=== PATIENT | female | born 1990 | race Caucasian/White ===

== ENCOUNTER 2024-04-08 14:29 | Outpatient (REF) | payer MEDICAID, SELFPAY ==
--- NOTE | 2024-04-08 14:10 | SKI_PTH ---
PATIENT: Es Garcia LOC: [facility] U#:[id number] AGE/SX: 33/F ROOM: RE04/08/[address]: GENEVA Mitchell : 1990 BED: DIS: 04/08/2024 SPEC #: [id number] RECD: 04/08/24 16:32 STATUS: NAOIME REElsa #: [id number] ANNE: 04/08/24 14:[address]: Kyle Hawkins DEPT: Surgical Specimen RECD BY: Nathalia Mooney ENTERED: 04/08/24 16:33 SP TYPE: VICTOR MANUEL ALEXANDRE DR: Gaetano Mchugh Tissues: 1 - SKIN BIOPSY(SHAVE/PUNCH) Procedures: SKIN LEVEL 4 Comments: [id number]
--- OUTSIDE RECORDS SUMMARY | 2024-04-08 14:32 | XMS_ITS | Continuity of Care Document ---
Author Name Unknown Organization [facility] Address [address] [place] [address] Care Team Providers Care Transportation Dispatch Manager Name Role Phone Gaetano Mchugh Primary Care Physician [phone] [facility] [address] [place] [address] Discharge Disposition: Home or Self Care Attending Physician: Gaetano Mchugh MD Admitting Physician: Gaetano Mchugh MD Referring Physician: Gaetano Mchugh MD Allergies, Adverse Reactions, Alerts No Known Medication Allergies Substance Reaction Severity Status Seasonal Unknown Active Assessment and Plan Future Appointments Immunizations Given and Recorded Vaccine Date Status Refusal Reason influenza virus vaccine, inactivated 07/14/22 Theron rded influenza virus vaccine, inactivated 08/11/14 Theron rded SARS-CoV-2 mRNA (tozinameran 12y+) bival 06/30/22 Recorded SARS-CoV-2 (COVID-19) mRNA-1273 vaccine 09/06/21 R ecorded SARS-CoV-2 (COVID-19) mRNA-1273 vaccine 03/01/21 R ecorded SARS-CoV-2 (COVID-19) mRNA-1273 vaccine 01/26/21 R ecorded tetanus-diphth toxoids (Td) adult/adol 11/18/18 Re corded tetanus-diphth toxoids (Td) adult/adol 08/29/02 Re corded influenza virus vaccine, live 06/29/17 Recorded influenza virus vaccine, live 08/09/15 Recorded tetanus/diphth/pertuss (Tdap) adult/adol 11/01/08 Recorded tetanus/diphth/pertuss (Tdap) adult/adol 10/12/08 Recorded tetanus/diphth/pertuss (Tdap) adult/adol 90 Recorded hepatitis A pediatric vaccine 06/18/07 Recorded hepatitis A pediatric vaccine 11/25/06 Recorded varicella virus vaccine 90 Recorded measles/mumps/rubella virus vaccine 90 Recor ded hepatitis B pediatric vaccine 90 Recorded Medications ARIPiprazole 2 mg oral tablet 2 mg = 1 tab, Oral, Daily, # 30 tab, 0 Refill(s) Start Date: 01/12/23 Status: Ordered cetirizine 10 mg oral tablet 10 mg = 1 tab, Oral, Daily, 0 Refill(s) Start Date: 12/25/22 Status: Ordered Dasetta oral tablet 1 tab, Oral, Daily, 0 Refill(s) Start Date: 12/25/22 Status: Ordered ibuprofen 200 mg =, Oral, every 4 hr, PRN as needed for pain, Take 2 tabs, 0 Refill(s) Start Date: 12/25/22 Status: Ordered LORazepam 0.5 mg oral tablet 0.5 mg = 1 tab, Oral, every 8 hr, PRN as needed for anxiety, 0 Refill(s) Start Date: 01/12/23 Status: Ordered Paxil 40 mg oral tablet 40 mg = 1 tab, Oral, Daily, 0 Refill(s) Start Date: 12/25/22 Status: Ordered triamcinolone 0.1% topical cream 1 amy, Topical, BID, PRN not specified, Apply to affected areas., # 80 g, 0 Refill(s) Start Date: 12/25/22 Status: Ordered Valtrex 500 mg =, Oral, PRN not specified, Take as needed, 0 Refill(s) Start Date: 12/25/22 Status: Ordered Problem List Condition Confirmation Course Effective Dates Status H ealth Status Informant Anxiety Confirmed Active Depression 1 Confirmed Active Eczema Confirmed Active HSV-2 (herpes simplex virus 2) infection Confirmed Active Elevated random blood glucose level Confirmed Active Hirsutism Confirmed Active Moderate mixed hyperlipidemia not requiring statin therapy Confirmed Active Obesity Confirmed Active OCD (obsessive compulsive disorder) Confirmed Active Encounter for surveillance of contraceptive pills Confirmed Active PCOS (polycystic ovarian syndrome) Confirmed Active Tachycardia 2 Confirmed Active 1Has been following with psychiatry and therapist. 2Improved. Transthoracic echo in 2020 Procedures Procedure Date Related Diagnosis Body Site Status Transthoracic echocardiography 10/11/20 Completed PAP smear preparation 04/02/20 Com pleted Shave biopsy 1 04/10/14 Completed 1Left thigh Results Laboratory List Name Date CBC w/o Diff (Hemogram) 01/12/23 Comprehensive Metabolic Panel (CMP) Hemoglobin A1c 01/12/23 Lipid Panel 01/12/23 TSH w/ Rflx to Free T4 01/12/23 Most recent to oldest [Reference Range]: 1 WBC [5.0-10.0 x10^3/mcL] 8.3 x10^3/mcL (01/12/23 1:30 PM) RBC [4.1-5.3 x10^6/mcL] 4.9 x10^6/mcL (01/12/23 1:30 PM) BUN [7-18 mg/dL] 16 mg/dL (01/12/23 1:30 PM) Cholesterol Total [50-200 mg/dL] 194 mg/ dL (01/12/23 1:30 PM) LDL [0-130 mg/dL] 106 mg/dL (01/12/23 1:30 PM) Glucose Level [74-106 mg/dL] 101 mg/dL (01/12/23 1:30 PM) Potassium Level [3.5-5.1 mmol/L] 4.0 mmo l/L (01/12/23 1:30 PM) MCV [80.0-96.0] 90.2 (01/12/23 1:30 PM) HDL [40-60 mg/dL] 54 mg/dL (01/12/23 1:30 PM) AST [15-37 unit/L] 18 unit/L (01/12/23 1:30 PM) ALT [14-59 unit/L] 27 unit/L (01/12/23 1:30 PM) MCHC [31.0-35.0 g/dL] 31.6 g/dL (01/12/23 1:30 PM) Sodium Level [136-145 mmol/L] 136 mmol/L (01/12/23 1:30 PM) Hct [37.0-47.0 %] 44.3 % (01/12/23 1:30 PM) Triglycerides [0-150 mg/dL] 170 mg/dL *HI* (01/12/23 1:30 PM) Calcium Level [8.5-10.1 mg/dL] 9.0 mg/dL (01/12/23 1:30 PM) Albumin Level [3.4-5.0 g/dL] 3.3 g/dL *LOW* (01/12/23 1:30 PM) Protein Total [6.4-8.2 g/dL] 7.3 g/dL (01/12/23 1:30 PM) MCH [26.0-32.0 pg] 28.5 pg (01/12/23 1:30 PM) Bilirubin Total [0.2-1.0 mg/dL] 0.6 mg/d L (01/12/23 1:30 PM) Hgb [12.0-16.0 g/dL] 14.0 g/dL (01/12/23 1:30 PM) Alk Phos [46-146 unit/L] 55 unit/L (01/12/23 1:30 PM) Platelets [130-450 x10^3/mcL] 379 x10^3/ mcL (01/12/23 1:30 PM) CO2 [21-32 mmol/L] 26 mmol/L (01/12/23 1:30 PM) TSH [0.358-3.740 mcIntlUnit/mL] 1.115 mc IntlUnit/mL (01/12/23 1:30 PM) eGFR Non-AA [>=60] 92 (01/12/23 1:30 PM) eGFR AA [>=60] 92 (01/12/23 1:30 PM) Hemoglobin A1c [4.0-6.0 %] 5.5 % (01/12/23 1:30 PM) Chloride Level [98-107 mmol/L] 101 mmol/ L (01/12/23 1:30 PM) RDW-CV [11.7-17.0 %] 12.8 % (01/12/23 1:30 PM) Creatinine Level [0.55-1.02 mg/dL] 0.86 mg/dL (01/12/23 1:30 PM) Social History Social History Type Response Tobacco Former tobacco user Tobacco Use:. 1 Sex Female 1Quit 2013 Patient Care team information Care Team Personnel Name: Gaetano Mchugh MD Position: Physician Member Role: Primary Care Physician Address: Address: [address]
--- OUTSIDE RECORDS SUMMARY | 2024-04-08 14:32 | XMS_ITS | Continuity of Care Document ---
Author Name Unknown Organization [facility] Address [address] [place] [address] Care Team Providers Care Casualty Claim Adjuster Name Role Phone Gaetano Mchugh Primary Care Physician Encounter [facility] Date(s): 02/05/24 - 02/05/24 [facility] [address] [place] [address] Discharge Disposition: Home or Self Care Attending Physician: Gaetano Mchugh MD Admitting Physician: Gaetano Mchugh MD Referring Physician: Gaetano Mchugh MD Allergies, Adverse Reactions, Alerts No Known Medication Allergies Substance Reaction Severity Status Seasonal Unknown Active Assessment and Plan Future Appointments Diagnostic Tests Pending * Hemoglobin/Thalassemia Electrophoresis, [facility] 02/05/24 Immunizations Given and Recorded Vaccine Date Status Refusal Reason SARS-COV-2 (COVID-19) vaccine, unspecifi 07/09/23 Recorded influenza, unspecified formulation 07/09/23 Record ed influenza, unspecified formulation 06/27/21 Record ed influenza virus vaccine, inactivated 07/14/22 Theron rded influenza virus vaccine, inactivated 1 06/29/17 Re corded influenza virus vaccine, inactivated 2 08/14/16 Re corded influenza virus vaccine, inactivated 3 08/09/15 Re corded influenza virus vaccine, inactivated 08/11/14 Theron rded SARS-CoV-2 mRNA (toamandanameran 12y+) bival 06/30/22 Recorded SARS-CoV-2 (COVID-19) mRNA-1273 vaccine 09/06/21 R ecorded SARS-CoV-2 (COVID-19) mRNA-1273 vaccine 03/01/21 R ecorded SARS-CoV-2 (COVID-19) mRNA-1273 vaccine 01/26/21 R ecorded tetanus-diphth toxoids (Td) adult/adol 11/18/18 Re corded tetanus-diphth toxoids (Td) adult/adol 08/29/02 Re corded influenza virus vaccine, live 06/29/17 Recorded influenza virus vaccine, live 08/09/15 Recorded human papillomavirus vaccine 10/02/11 Recorded human papillomavirus vaccine 05/16/11 Recorded human papillomavirus vaccine 02/24/11 Recorded varicella virus vaccine 4 11/01/08 Recorded varicella virus vaccine 5 09/18/95 Recorded varicella virus vaccine 90 Recorded meningococcal conjugate vaccine 6 11/01/08 Recorde d tetanus/diphth/pertuss (Tdap) adult/adol 11/01/08 Recorded tetanus/diphth/pertuss (Tdap) adult/adol 10/12/08 Recorded tetanus/diphth/pertuss (Tdap) adult/adol 7 06/18/07 Recorded tetanus/diphth/pertuss (Tdap) adult/adol 90 Recorded hepatitis A pediatric vaccine 06/18/07 Recorded hepatitis A pediatric vaccine 11/25/06 Recorded hepatitis B pediatric vaccine 08/31/98 Recorded hepatitis B pediatric vaccine 10/08/97 Recorded hepatitis B pediatric vaccine 09/06/97 Recorded hepatitis B pediatric vaccine 90 Recorded measles/mumps/rubella virus vaccine 8 09/09/95 Rec orded measles/mumps/rubella virus vaccine 9 12/20/91 Rec orded measles/mumps/rubella virus vaccine 90 Recor ded diphtheria/tetanus/pertussis,acel/polio 10 09/09/95 Recorded diphtheria/pertussis, acellular/tetanus 11 08/29/92 Recorded diphtheria/pertussis, acellular/tetanus 12 02/29/92 Recorded haemophilus b conjugate (PRP-T) vaccine 13 12/20/91 Recorded haemophilus b conjugate (PRP-T) vaccine 14 02/28/91 Recorded poliovirus vaccine, inactivated 15 03/03/91 Record ed diphth/haemoph/pertussis/tetanus/polio 16 90 Recorded diphth/haemoph/pertussis/tetanus/polio 17 90 Recorded 1Result Comment: Unit: Unknown 2Result Comment: Unit: Unknown 3Result Comment: Unit: Unknown 4Result Comment: Unit: Unknown 5Result Comment: Unit: Unknown 6Result Comment: Unit: Unknown 7Result Comment: Unit: Unknown 8Result Comment: Unit: Unknown 9Result Comment: Unit: Unknown 10Result Comment: Unit: Unknown 11Result Comment: Unit: Unknown 12Result Comment: Unit: Unknown 13Result Comment: Unit: Unknown 14Result Comment: Unit: Unknown 15Result Comment: Unit: Unknown 16Result Comment: Unit: Unknown 17Result Comment: Unit: Unknown Medications cetirizine 10 mg oral tablet 10 mg = 1 tab, Oral, Daily, 0 Refill(s) Start Date: 12/25/22 Status: Ordered Dasetta oral tablet 35 mcg 1 tab, Oral, Daily, # 84 tab, 4 Refill(s), Pharmacy: [id number] Start Date: 02/23/23 Status: Ordered ibuprofen 200 mg =, Oral, [...] Active OCD (obsessive compulsive disorder) Confirmed Active Obstructive sleep apnea, adult Confirmed Active Encounter for surveillance of contraceptive pills Confirmed Active PCOS (polycystic ovarian syndrome) Confirmed Active Snoring Confirmed Active Tachycardia 2 Confirmed Active 1Has been following with psychiatry and therapist. 2Improved. Transthoracic echo in 2020 Procedures Procedure Date Related Diagnosis Body Site Status Cytology Cvx/Vag Doc Thin Prep 02/23/23 Completed HPV Ab Genital Ql IA 02/23/23 Comp leted Due 02/2028 1, 2 02/22/23 Completed Cardiac monitoring 3 06/24/21 Comp leted Transthoracic echocardiography 06/03/21 Completed PAP smear preparation 04/02/20 Com pleted Shave biopsy 4 04/10/14 Completed 1Pap Due - 01/2019 05/04/12 - WNL 01/25/16 - WNL - Neg/Neg Next Pap Due 02/2028 3holtor monitor 4Left thigh Results Laboratory List Name Date Basic Metabolic Panel (BMP) 02/05/24 CBC w/o Diff 02/05/24 Hemoglobin A1c 02/05/24 Lipid Panel 02/05/24 TSH w/ Rflx to Free T4 02/05/24 Vitamin B12 Level 02/05/24 Most recent to oldest [Reference Range]: 1 WBC [5.0-10.0 x10^3/mcL] 7.4 x10^3/mcL (02/05/24 10:07 AM) RBC [4.1-5.3 x10^6/mcL] 4.6 x10^6/mcL (02/05/24 10:07 AM) BUN [7-18 mg/dL] 14 mg/dL (02/05/24 10:07 AM) Cholesterol Total [50-200 mg/dL] 180 mg/ dL (02/05/24 10:07 AM) LDL [0-130 mg/dL] 98 mg/dL (02/05/24 10:07 AM) Glucose Level [74-106 mg/dL] 114 mg/dL *HI* (02/05/24 10:07 AM) Potassium Level [3.5-5.1 mmol/L] 4.0 mmo l/L (02/05/24 10:07 AM) MCV [80.0-96.0 fL] 87.3 fL (02/05/24 10:07 AM) HDL [40-60 mg/dL] 52 mg/dL (02/05/24 10:07 AM) MCHC [31.0-35.0 g/dL] 32.8 g/dL (02/05/24 10:07 AM) Sodium Level [136-145 mmol/L] 138 mmol/L (02/05/24 10:07 AM) Hct [37.0-47.0 %] 40.6 % (02/05/24 10:07 AM) Triglycerides [0-150 mg/dL] 151 mg/dL *HI* (02/05/24 10:07 AM) Calcium Level [8.5-10.1 mg/dL] 8.6 mg/dL (02/05/24 10:07 AM) MCH [26.0-32.0 pg] 28.6 pg (02/05/24 10:07 AM) Hgb [12.0-16.0 g/dL] 13.3 g/dL (02/05/24 10:07 AM) B12 Level [193-986 pg/mL] 250 pg/mL (02/05/24 10:07 AM) Platelets [130-450 x10^3/mcL] 334 x10^3/ mcL (02/05/24 10:07 AM) CO2 [21-32 mmol/L] 24 mmol/L (02/05/24 10:07 AM) TSH [0.358-3.740 mcIntlUnit/mL] 2.229 mc IntlUnit/mL (02/05/24 10:07 AM) eGFR Non-AA [>=60] 88 (02/05/24 10:07 AM) eGFR AA [>=60] 88 (02/05/24 10:07 AM) Hemoglobin A1c [4.0-5.6 %] 5.6 % 1, 2 (02/05/24 10:07 AM) Chloride Level [98-107 mmol/L] 103 mmol/ L (02/05/24 10:07 AM) RDW-CV [11.5-14.5 %] 12.9 % (02/05/24 10:07 AM) Creatinine Level [0.55-1.02 mg/dL] 0.89 mg/dL (02/05/24 10:07 AM) 1Result Comment: Potential abnormal hemoglobin observed during A1c analysis. Hgb electrophoresis study added by reflex. 2Interpretive Data: New test method effective 11-10-23. Establishment of new HA1c baseline is recommended. The following A1c interpretive data reflect the 2017 [place] [employer] (ADA) guidelinesand will be reported with each A1c result: Normal: <5.7% Prediabetes: 5.7 - 6.4% Diagnostic for diabetes (if confirmed): ???6.5% Social History Social History Type Response Tobacco Former tobacco user Tobacco Use:. 1 Sex Female 1Quit 2013 Patient Care team information Care Team Personnel Name: Gaeatno Mchugh MD Position: Physician Member Role: Primary Care Physician Address: Address: [address] Care Team Related Persons Name: MAIRA A GHOSH I Address: Alternate [address] [facility] Address: Home [address] [place] [phone] Address: Mailing [address] [place] [address] [phone] Name: MARIA A GHOSH I Address: Alternate [address] [facility] Address: Home [address] [place] [phone] Address: Mailing [address] [place] [address] [phone] Name: ALESSIO GHOSH Address: Alternate [address] [facility] [phone] Address: Home [address] [place] [phone] Address: Mailing [address] [place] [address] [phone]
--- OUTSIDE RECORDS SUMMARY | 2024-04-08 14:32 | XMS_ITS | Continuity of Care Document ---
Author Name Unknown Organization [facility] or Sleep Disorders Address [address] [place] [address] Care Team Providers Care Gi Tech Name Role Phone Gaetano Mchugh Primary Care Physician [phone] Encounter [facility] Date(s): 11/02/23 - 11/02/[address] [facility] [facility] [place] [facility] [address] [place] [address] Encounter Diagnosis Obstructive sleep apnea, adult(Discharge Diagnosis) - 10/28/23 Discharge Disposition: Home or Self Care Attending Physician: Bernie Mata NP Allergies, Adverse Reactions, Alerts No Known Medication Allergies Substance Reaction Severity Status Seasonal Unknown Active Assessment and Plan Extracted from: Title:Clinic - Office Visit Note Author:Jeanne Mata NP Date:11/02/23 1.??Obstructive sleep apnea, adult??G47.33 KARLEE diagnosed on PSG in 03/2023 with AHI of 10.5/hr. She did not have REM sleep which may have led to an underestimation of the severity. She has started using an oral appliance. She has not been using this consistently. She relates it to mental health issues and not getting into a good routine. She generally tolerates the appliance well. She has an [employer] Advance Elite and based on Dr. Cobb's last note it should be set at 40 turns. She has the [employer] amy and she will start using that with the appliance and make adjustments as needed. She needs to schedule a follow-up with Dr Cobb that she missed. I discussed doing an oral appliance adjustment study but she would prefer to hold on this for now. She felt she did not sleep well while here and would like to use her appliance more consistently before considering the study.??If she and Dr. Cobb want to pursue a study she is asked to call and I can place the order. For now she is encouraged to use her appliance QHS and to get into a routine sleep schedule. ?? I provided greater than 20 minutes in the care of this patient, more than half the time was spent in [id number] counseling. ?? Future Appointments Immunizations Given and Recorded Vaccine [...] vaccine, inactivated 08/11/14 Theron rded SARS-CoV-2 mRNA (luis enriquen 12y+) bival 06/30/22 Recorded SARS-CoV-2 (COVID-19) mRNA-1273 [...] Daily, # 84 tab, 4 Refill(s), Pharmacy: [id number] Start Date: 02/23/23 Status: Ordered dulaglutide 0.75 mg/0.5 mL subcutaneous solution 0.75 mg = 0.5 mL, Subcutaneous, every week, rotate injection sites, # 2 mL, 0 Refill(s), Pharmacy: [id number] Start Date: 07/20/23 Status: Ordered ibuprofen 200 mg =, Oral, [...] 0 Refill(s) Start Date: 12/25/22 Status: Ordered Vyvanse 30 mg oral capsule 30 mg 1 cap, Oral, every morning, 0 Refill(s) Start Date: 07/20/23 Status: Ordered Problem List Condition Confirmation Course [...] Pap Due 02/2028 3holtor monitor 4Left thigh Vital Signs Most recent to oldest [Reference Range]: 1 Peripheral Pulse Rate [60-100 bpm] 89 bp m (11/02/23 12:28 PM) Blood Pressure [90-140/60-90 mmHg] 140/8 7mmHg (11/02/23 12:28 PM) Mean Arterial Pressure, Cuff [70-110 mmH g] 105 mmHg (11/02/23 12:28 PM) Weight 126.55 kg (11/02/23 12:28 PM) Weight Measured (lbs) 278.995 lb (11/02/23 12:28 PM) Weight Dosing 126.550 kg (11/02/23 12:28 PM) Height 165 cm (11/02/23 12:28 PM) Height/Length Measured (inches) 64.96 in ch (11/02/23 12:28 PM) BSA Measured 2.41 m2 (11/02/23 12:28 PM) Body Mass Index 46.48 kg/m2 (11/02/23 12:28 PM) Social History Social History Type Response Tobacco Former tobacco user Tobacco Use:. 1 Sex Female 1Quit 2013 Physician Outpatient Note * Bernie Mata FLIGHT ATTENDANT/INFLIGHT MANAGER: PERFORM Event Display: Office Clinic Note Physician Authored Date: [id number] SANJAY GHOSH :1990 Age:33 years Sex:Female Visit Date:11/02/2023 Primary Care Physician: Gaetano Mchugh MD History of Present Illness Sanjay Ghosh has a visit for KARLEE/oral appliance follow-up. ?? Sanjay was seen by me on 04/24/2023. She??has a medical history to include anxiety, depression, OCD, eczema, hirsutism, PCOS, obesity, and tachycardia. ?? She noted symptoms of snoring, non-restorative,??fatigue, and wakes with sore throat. ?? Polysomnogram was completed on??03/22/2023 (BMI 46.25). Sleep efficiency was 75%, AHI 10.5/hr, RDI 13.1/hr, REM AHI N/A, REM RDI N/A, supine AHI 12/hr, right lateral AHI N/A, left lateral AHI 4/hr,sp02 cornell 85%,?? 0 minutes were spent at a saturation <88%, arousal index 17/hr, PLMi 0/hr, PLMarousal index 0/hr. EKG showed NSR. ?? Last visit I referred her to Dr. Cobb. ?? Sanjay says that she did get an [employer] Elite appliance and she has used it a couple of nights in the past week. She says when she uses it she used the [employer] amy and there was no furthersnoring. She says the appliance is now at about??40 turns. She says she just is not in the habit ofusing it QHS but no specific problem with tooth or jaw pain when she is using it. She has not gotten to the point that she has used the appliance consistently. She says she is still struggling with her mental health and things got worse since I last saw her. She feels she sleeps too much because of this.? ESS today 08/04 Physical Exam Vitals & Measurements HR:??89??(Peripheral)?? BP:??140/87?? SpO2:??98%?? HT:??165??cm?? WT:??126.55??kg?? BMI:??46.48?? BSA:??2.41?? GENERAL: answers questions appropriately, well groomed, obese. HEAD: normocephalic and atraumatic. EYES: non icteric LUNGS: CTA all vale. Good air movement throughout. CARDIO: RRR without murmur, gallop or thrill. NEURO: alert and oriented, normal gait. PYSCH: normal mood and affect. CUTANEOUS: no overt lesions or rashes.?? Clinic Assessment/Plan 1.??Obstructive sleep apnea, adult??G47.33 KARLEE diagnosed on PSG in 03/2023 with AHI of 10.5/hr. She did not have REM sleep which may have led to an underestimation of the severity. She has started using an oral appliance. She has not been using this consistently. She relates it to mental health issues and not getting into a good routine. Shegenerally tolerates the appliance well. She has an [employer] Advance Elite and based on Dr. Cobb's la st note it should be set at 40 turns. She has the [employer] amy and she will start using that with the appliance and make adjustments as needed. She needs to schedule a follow-up with Dr Cobb that she missed. I discussed doing an oral appliance adjustment study but she would prefer to hold on this for now. She felt she did not sleep well while here and would like to use her appliance more consistently before considering the study.??If she and Dr. Cobb want to pursue a study she is asked to call and I can place the order. For now she is encouraged to use her appliance QHS and to get into aroutine sleep schedule. ?? I provided greater than 20 minutes in the care of this patient, more than half the time was spent in [id number] counseling. Problem List/Past Medical History Ongoing Anxiety Depression Eczema Elevated random blood glucose level Encounter for surveillance of contraceptive pills Hirsutism HSV-2 (herpes simplex virus 2) infection Moderate mixed hyperlipidemia not requiring statin therapy Obesity Obstructive sleep apnea, adult OCD (obsessive compulsive disorder) PCOS (polycystic ovarian syndrome) Snoring Tachycardia Historical No qualifying data Procedure/Surgical History ???Cytology Cvx/Vag Doc Thin Prep (02/23/2023)???HPV Ab Genital Ql IA (02/23/2023)???Due 02/2028 (02/23/2023)???Cardiac monitoring (06/25/2021)???Transthoracic echocardiography (06/04/2021)???PAP smear preparation (04/03/2020)???Shave biopsy (04/11/2014) Medications What How Much When Why Instructions Unchanged cetirizine (cetirizine 10 mg oral tablet) 1 tab Oral (given by mouth) Every day Contact prescribing physician if questions or concerns ?? Unchanged dulaglutide (dulaglutide 0.75 mg/ 0.5 mL subcutaneous solution) 0.5 Milliliters Subcutaneous (under the skin) Every week rotate injection sites Contact prescribing physician if questions or concerns ?? Unchanged ibuprofen 200 Milligrams Oral (given by mouth) Every 4 hours as needed for as needed for pain Take 2 tabs Contact prescribing physician if questions or concerns ?? Unchanged lisdexamfetamine (Vyvanse 30 mg oral capsule) 1 Capsules Oral (given by mouth) Every morning Contact prescribing physician if questions or concerns ?? Unchanged LORazepam (LORazepam 0.5 mg oral tablet) 1 tab Oral (given by mouth) Every 8 hours as needed for as needed for anxiety Contact prescribing physician if questions or concerns ?? Unchanged norethindrone-ethinyl estradiol (Dasetta oral tablet) 1 tab Oral (given by mouth) Every day Oral contraceptive pill surveillance Contact prescribing physician if questions or concerns ?? Unchanged PARoxetine (Paxil 40 mg oral tablet) 1 tab Oral (given by mouth) Every day Contact prescribing physician if questions or concerns ?? Unchanged triamcinolone topical (triamcinolone 0.1% topical cream) 1 Application Topical (on the skin) 2 times a day as needed for not specified Apply to affected areas. Contact prescribing physician if questions or concerns ?? Unchanged valACYclovir (Valtrex) 500 Milligrams Oral (given by mouth) As needed for not specified Take as needed Contact prescribing physician if questions or concerns ?? Allergies Seasonal No Known Medication Allergies Social History Alcohol Current, Wine, Liquor, 1-2 times per month Electronic Cigarette/Vaping Electronic Cigarette Use: Never. Home/Environment Lives with Father, Mother. Nutrition/Health Diet: Regular, Occassionaly will do WW.. Caffeine intake amount: 3 cups daily. Drinks coffee, tea or soda.. Sexual Sexually active: No. Other contraceptive use: OCP's. Substance Use Past, Marijuana- Comments: Rarely used; none since 2012 Tobacco Former tobacco user Tobacco Use:.- Comments: Quit 2013 Family History Arthritis: Other. Atrial fibrillation: Father. Cancer: Grandfather (P) and Other. Congestive heart failure: Grandmother (P). Diabetes mellitus: Grandmother (M). Diabetes mellitus type 2: Mother. Glaucoma: Grandfather (P). Heart disease: Grandmother (M) and Other. Hyperlipidemia: Mother. Hypertension: Mother. Hypothyroidism: Father. Irritable bowel syndrome: Mother. Macular degeneration: Other. Immunizations Vaccine Date Status SARS-COV-2 (COVID-19) vaccine, unspecifi 07/09/2023 Recorded influenza, unspecified formulation 07/09/2023 Recorded influenza virus vaccine, inactivated 07/14/2022 Recorded SARS-CoV-2 mRNA (toloretoeran 12y+) bival 06/30/2022 Recorded SARS-CoV-2 (COVID-19) mRNA-1273 vaccine 09/06/2021 Recorded influenza, unspecified formulation 06/27/2021 Recorded SARS-CoV-2 (COVID-19) mRNA-1273 vaccine 03/01/2021 Recorded SARS-CoV-2 (COVID-19) mRNA-1273 vaccine 01/26/2021 Recorded tetanus-diphth toxoids (Td) adult/adol 11/18/2018 Recorded influenza virus vaccine, inactivated 06/29/2017 Recorded Comments : Unit: Unknown influenza virus vaccine, live 06/29/2017 Recorded influenza virus vaccine, inactivated 08/14/2016 Recorded Comments : Unit: Unknown influenza virus vaccine, inactivated 08/09/2015 Recorded Comments : Unit: Unknown influenza virus vaccine, live 08/09/2015 Recorded influenza virus vaccine, inactivated 08/11/2014 Recorded human papillomavirus vaccine 10/02/2011 Recorded human papillomavirus vaccine 05/16/2011 Recorded human papillomavirus vaccine 02/24/2011 Recorded varicella virus vaccine 11/01/2008 Recorded Comments : Unit: Unknown meningococcal conjugate vaccine 11/01/2008 Recorded Comments : Unit: Unknown tetanus/diphth/pertuss (Tdap) adult/adol 11/01/2008 Recorded tetanus/diphth/pertuss (Tdap) adult/adol 10/12/2008 Recorded tetanus/diphth/pertuss (Tdap) adult/adol 06/18/2007 Recorded Comments : Unit: Unknown hepatitis A pediatric vaccine 06/18/2007 Recorded hepatitis A pediatric vaccine 11/25/2006 Recorded tetanus-diphth toxoids (Td) adult/adol 08/29/2002 Recorded hepatitis B pediatric vaccine 08/31/1998 Recorded hepatitis B pediatric vaccine 10/08/1997 Recorded hepatitis B pediatric vaccine 09/06/1997 Recorded varicella virus vaccine 09/18/1995 Recorded Comments : Unit: Unknown measles/mumps/rubella virus vaccine 09/09/1995 Recorded Comments : Unit: Unknown diphtheria/tetanus/pertussis,acel/polio 09/09/1995 Recorded Comments : Unit: Unknown diphtheria/pertussis, acellular/tetanus 08/29/1992 Recorded Comments : Unit: Unknown diphtheria/pertussis, acellular/tetanus 02/29/1992 Recorded Comments : Unit: Unknown measles/mumps/rubella virus vaccine 12/20/1991 Recorded Comments : Unit: Unknown haemophilus b conjugate (PRP-T) vaccine 12/20/1991 Recorded Comments : Unit: Unknown poliovirus vaccine, inactivated 03/03/1991 Recorded Comments : Unit: Unknown haemophilus b conjugate (PRP-T) vaccine 02/28/1991 Recorded Comments : Unit: Unknown diphth/haemoph/pertussis/tetanus/polio 1990 Recorded Comments : Unit: Unknown diphth/haemoph/pertussis/tetanus/polio 1990 Recorded Comments : Unit: Unknown varicella virus vaccine 1990 Recorded tetanus/diphth/pertuss (Tdap) adult/adol 1990 Recorded measles/mumps/rubella virus vaccine 1990 Recorded hepatitis B pediatric vaccine 1990 Recorded Electronically Signed on 11/02/23 12:45 PM Bernie Mata NP Patient Care team information Care Team Personnel Name: Gaetano Mchugh MD Position: Physician Member Role: Primary Care Physician Address: Address: [place] [address]- Care Team Related Persons Name: MARIA A GHOSH I Address: [address] Address: Home [address] [place] [phone] [facility] [address] [phone] Name: ALESSIO GHOSH Address: [facility] [address] [facility] [id number] Address: Home [address] [place] [phone] Address: Mailing [address] [phone]
--- OUTSIDE RECORDS SUMMARY | 2024-04-08 14:32 | XMS_ITS | Continuity of Care Document ---
Author Name Unknown Organization [facility] f or Sleep Disorders Address [address] [place] [address] Care Team Providers Care Steel Wool Machine Operator Name Role Phone Gaetano Mchugh Primary Care Physician [phone] [facility]counter [facility] [id number] Date(s): 04/24/23 - 04/24/23 [facility] [address] [place] [address] Encounter Diagnosis Obstructive sleep apnea, adult(Discharge Diagnosis) - 04/23/23 Discharge Disposition: Home or Self Care Attending Physician: Bernie Mata FRENCH FOLDER Allergies, Adverse Reactions, Alerts No Known Medication Allergies Substance Reaction Severity Status Seasonal Unknown Active Assessment and Plan Future Appointments Functional Status 04/24/23 Other exposure to Infectious Disease Non e Immunizations Given and Recorded Vaccine Date Status [...] Daily, # 84 tab, 4 Refill(s), Pharmacy: [facility][id number] Start Date: 02/23/23 Status: Ordered ibuprofen [...] Procedure Date Related Diagnosis Body Site Status Due 02/2028 1, 2 02/22/23 Completed Cardiac monitoring 3 06/24/21 Comp leted Transthoracic echocardiography 06/03/21 Completed PAP smear preparation 04/02/20 Com pleted Shave biopsy 4 04/10/14 Completed 1Pap Due - 01/2019 05/04/12 - WNL 01/25/16 - WNL - Neg/Neg Next Pap Due 02/2028 3holtor monitor 4Left thigh Vital Signs Most recent to oldest [Reference Range]: 1 Peripheral Pulse Rate [60-100 bpm] 78 bp m (04/24/23 10:15 AM) Blood Pressure [90-140/60-90 mmHg] 128/7 8mmHg (04/24/23 10:15 AM) Weight 127.01 kg (04/24/23 10:15 AM) Weight Measured (lbs) 280.009 lb (04/24/23 10:15 AM) Height 166 cm (04/24/23 10:15 AM) Height/Length Measured (inches) 65.35 in ch (04/24/23 10:15 AM) BSA Measured 2.42 m2 (04/24/23 10:15 AM) Body Mass Index 46.09 kg/m2 (04/24/23 10:15 AM) Social History Social History Type Response Tobacco Former tobacco user Tobacco Use:. 1 Sex Female 1Quit 2013 Physician Outpatient Note * Bernie Mata FRENCH FOLDER: PERFORM Event Display: Office Clinic Note Physician Authored Date: [id number] SANJAY GHOSH :1990 Age:32 years Sex:Female Visit Date:04/24/2023 Primary Care Physician: Gaetano Mchugh MD History of Present Illness Sanjay Ghosh is seen at the request of Gaetano Mchugh MD for evaluation of snoring. She is pursuing bariatric surgery ([facility]). ?? Sanjay was seen by me on 02/23/2023. She??has a medical history to include anxiety, depression,OCD, eczema, hirsutism, PCOS, obesity, and tachycardia. ?? She noted symptoms of snoring, non-restorative,??fatigue, and wakes with sore throat. ?? Polysomnogram was completed on??03/22/2023 (BMI 46.25) and I reviewed the results with??her in detail today. Sleep efficiency was 75%, AHI 10.5/hr, RDI 13.1/hr, REM AHI N/A, REM RDI N/A, supine AHI 12/hr, right lateral AHI N/A, left lateral AHI 4/hr, sp02 cornell 85%,?? 0 minutes were spent at a saturation <88%, arousal index 17/hr, PLMi 0/hr, PLM arousal index 0/hr. EKG showed NSR. ?? Sanjay feels her sleep the night of the PSG was worse when compared to a typical night at homebecause she woke up more often and was awake longer during the night then she typically is at home.She still has above symptoms and no new sleep complaints today. Physical Exam Vitals & Measurements HR:??78??(Peripheral)?? BP:??128/78?? SpO2:??99%?? HT:??166??cm?? WT:??127.01??kg?? BMI:??46.09?? BSA:??2.42?? GENERAL: answers questions appropriately, well groomed, obese. HEAD: normocephalic and atraumatic. EYES: non icteric LUNGS: CTA all vale. Good air movement throughout. CARDIO: RRR without murmur, gallop or thrill. NEURO: alert and oriented, normal gait. PYSCH: normal mood and affect. CUTANEOUS: no overt lesions or rashes.?? Clinic Assessment/Plan 1.??Obstructive sleep apnea, adult??G47.33 KARLEE diagnosed on recent PSG with AHI of 10.5/hr. She did not have REM sleep which may have led to an underestimation of the severity. I discussed treatment options at length to include CPAP therapy, an oral appliance, and positional therapy to avoid supine sleep.??Her weight loss surgery is currently on hold. Her father uses a CPAP so she is familiar with them and really has no interest in tryingto use one at this time. She would prefer to try an oral appliance. At this time I have referred her to Dr Cobb for an oral appliance. Her teeth are in good condition and she does not have any acute TMJ problems. I will see her back in six months to determine if a follow-up PSG is necessary. She is asked to call our office for any sleep related questions or concerns. I provided greater than 30 minutes in the care of this patient, more than half the time was spent in [id number] counseling. Problem List/Past Medical History Ongoing Anxiety Depression Eczema Elevated random blood glucose level Encounter for surveillance of contraceptive pills Hirsutism HSV-2 (herpes simplex virus 2) infection Moderate mixed hyperlipidemia not requiring statin therapy Obesity Obstructive sleep apnea, adult OCD (obsessive compulsive disorder) PCOS (polycystic ovarian syndrome) Snoring Tachycardia Historical No qualifying data Procedure/Surgical History ???Due 02/2028 (02/23/2023)???Cardiac monitoring (06/25/2021)???Transthoracic echocardiography (06/04/2021)???PAP smear preparation (04/03/2020)???Shave biopsy (04/11/2014) Medications What How Much When Why Instructions Unchanged ARIPiprazole (ARIPiprazole 2 mg oral tablet) 1 tab Oral (given by mouth) Every day Unchanged cetirizine (cetirizine 10 mg oral tablet) 1 tab Oral (given by mouth) Every day Unchanged ibuprofen 200 Milligrams Oral (given by mouth) Every 4 hours as needed for as needed for pain Take 2 tabs ?? Unchanged LORazepam (LORazepam 0.5 mg oral tablet) 1 tab Oral (given by mouth) Every 8 hours as needed for as needed for anxiety Unchanged norethindrone-ethinyl estradiol (Dasetta oral tablet) 1 tab Oral (given by mouth) Every day Oral contraceptive pill surveillance Unchanged PARoxetine (Paxil 40 mg oral tablet) 1 tab Oral (given by mouth) Every day Unchanged triamcinolone topical (triamcinolone 0.1% topical cream) 1 Application Topical (on the skin) 2 times a day as needed for not specified Apply to affected areas. ?? Unchanged valACYclovir (Valtrex) 500 Milligrams Oral (given by mouth) As needed for not specified Take as needed ?? Allergies Seasonal No Known Medication Allergies [...] Macular degeneration: Other. Immunizations Vaccine Date Status influenza virus vaccine, inactivated 07/14/2022 Recorded SARS-CoV-2 mRNA (deann 12y+) bival 06/30/2022 Recorded SARS-CoV-2 (COVID-19) mRNA-1273 vaccine 09/06/2021 Recorded SARS-CoV-2 (COVID-19) mRNA-1273 vaccine 03/01/2021 Recorded SARS-CoV-2 (COVID-19) mRNA-1273 vaccine 01/26/2021 Recorded tetanus-diphth toxoids (Td) adult/adol 11/18/2018 Recorded influenza virus vaccine, live 06/29/2017 Recorded influenza virus vaccine, live 08/09/2015 Recorded influenza virus vaccine, inactivated 08/11/2014 Recorded tetanus/diphth/pertuss (Tdap) adult/adol 11/01/2008 Recorded tetanus/diphth/pertuss (Tdap) adult/adol 10/12/2008 Recorded hepatitis A pediatric vaccine 06/18/2007 Recorded hepatitis A pediatric vaccine 11/25/2006 Recorded tetanus-diphth toxoids (Td) adult/adol 08/29/2002 Recorded varicella virus vaccine 1990 Recorded tetanus/diphth/pertuss (Tdap) adult/adol 1990 Recorded measles/mumps/rubella virus vaccine 1990 Recorded hepatitis B pediatric vaccine 1990 Recorded Electronically Signed on 04/24/23 10:32 AM Bernie Mata NP Patient Care team information Care Team Personnel Name: Gaetano Mchugh MD Position: Physician Member Role: Primary Care Physician Address: Address: [address] [address]- Care Team Related Persons Name: MARIA A GHOSH I Address: [facility] Address: Home [address] [place] [phone] Address: Mailing [address] [place] [phone] Name: ALESSIO GHOSH Address: [facility] [id number] Address: Home [address] [place] [phone] Address: Mailing [address] [place] [phone]
--- OUTSIDE RECORDS SUMMARY | 2024-04-08 14:32 | XMS_ITS | Continuity of Care Document ---
Author Name Unknown Organization [facility] Address [address] [place] [address] Care Team Providers Care Remote Mortgage Underwriter Name Role Phone Gaetano Mchugh Primary Care Physician [phone] [facility] Date(s): 03/22/23 - 03/22/23 [facility] [address] [place] [address] Discharge Disposition: Home or Self Care Attending Physician: Bernie Mata HOME PERFORMANCE LABORER Admitting Physician: Bernie Mata NP Referring Physician: Bernie Mata HOME PERFORMANCE LABORER Allergies, Adverse Reactions, Alerts No Known Medication [...] Daily, # 84 tab, 4 Refill(s), Pharmacy: [id number] Start Date: 02/23/23 Status: Ordered ibuprofen [...] Pap Due 02/2028 3holtor monitor 4Left thigh Social History Social History Type Response Tobacco Former tobacco user Tobacco Use:. 1 Sex Female 1Quit 2013 Patient Care team information Care Team Personnel Name: Gaetano Mchugh MD Position: Physician Member Role: Primary Care Physician Address: Address: [place] [address]- Care Team Related Persons Name: MARIA A GHOSH I Address: Alternate [address] [facility] Address: Home [address] [phone] Address: Mailing [address] [phone] Name: ALESSIO GHOSH Address: Alternate [address] [facility] [id number] Address: Home [place] [phone] [facility] [address] [phone]
== END 2024-04-08 14:30 | disposition home or self-care (01) ==
LOC: LBN 14:29
PROVIDERS: PCP Family Medicine; Visit Provider Physician Assistant
DX: D22.9 Melanocytic nevi, unspecified (principal); D22.62 Melanocytic nevi of left upper limb, including shoulder
CPT/HCPCS: 88305